=== PATIENT | female | born 1960 | race African-American/Black ===

== ENCOUNTER 2018-04-29 10:11 | Emergency (ER) | payer SELFPAY ==
[2018-04-29 10:53] LABS: #Basophils 0.1 thou/uL (0.0-0.2); #Eosinphils 0.1 thou/uL (0.0-0.7); #Lymphocytes 2.3 thou/uL (1.20-3.40); #Monocytes 0.3 thou/uL (0.11-0.59); #Neutrophils 2.4 thou/uL (1.40-6.50); %Basophils 2.1 % (0.0-1.0); %Eosinophils 2.7 % (0.0-10.0); %Lymphocytes 43.7 % (21.0-51.0); %Monocytes 6.2 % (0.0-10.0); %Neutrophils 45.3 % (42.0-75.0); Mean Corpuscular HGB CONC 32.4 g/dL (32.0-36.0); Mean Corpuscular Hemoglobin 29.2 pg (27.0-31.0); Mean Corpuscular Volume 90.2 fl (81.0-99.0); Mean Platelet Volume 7.4 fL (7.4-10.4); Platelet Count 276 thou/uL (130-400); RBC Distribution Width 12.7 % (11.5-14.5); Red Blood Cell (RBC) Count 4.43 mill/uL (4.20-5.40); White Blood Cell (WBC) Count 5.2 thou/uL (4.8-10.8)
[2018-04-29 11:09] LABS: ALT (SGPT) 139 U/L (8-55); AST (SGOT) 133 U/L (5-34); Albumin 3.7 g/dL (3.5-5.0); Alkaline Phosphatase 548 U/L (40-150); Anion Gap 12 mmol/L (10-20); BUN (Urea Nitrogen) 10 mg/dL (9.8-20.1); Bilirubin, Total 0.7 mg/dL (0.2-1.2); Calc. Creatinine Clearance 0 mL/min (70-130); Calcium 9.5 mg/dL (7.8-10.44); Carbon Dioxide 26 mmol/L (22-29); Chloride 102 mmol/L (98-107); Estimated GFR-MDRD Greater than 90; Globulin 4.8 g/dL (2.4-3.5); Glucose 101 mg/dL (70-105); Lipase 7 U/L (8-78); Protein, Total 8.5 g/dL (6.0-8.3); Sodium 136 mmol/L (136-145)
[2018-04-29 11:30] LABS: Bilirubin Negative (Negative); Blood, Urine Negative (Negative); Clarity CLEAR (Clear); Glucose, Urine (Dipstick) Negative (Negative); Leukocyte Small (Negative); Nitrite Negative (Negative); Protein, Urine (Dipstick) 30 mg/dL (Neg-Trace); Specific Gravity, Urine 1.023 (1.002-1.036)
[2018-04-29 11:33] LABS: Bacteria/HPF None Seen HPF (None Seen); Hyaline Casts/LPF 0-3 HYALINE CAST LPF (0-3 Hyaline); Pathc Cast-AUWi Flag 0.29 (0-2.49); Squamous Epithelial 0-3 HPF (0-3); WBC/HPF 0-3 HPF (0-3)
[2018-04-29] MEDS ORDERED: ISOVUE-370 76%-LOCM 1 ML ONE (13:41)
[2018-04-29] MEDS ORDERED: Iopamidol 370 76% 50 ML VIAL FS ONE (13:41)
--- NOTE | 2018-04-29 15:12 | CT ---
CT OF ABDOMEN AND PELVIS PERFORMED WITH IV CONTRAST ENHANCEMENT: Date: 04/29/18 HISTORY: right lower quadrant pain. FINDINGS: The lung bases are clear of infiltrates. There is a small hiatal hernia present. There is oral contra st within the distal esophagus. This could indicate reflux. Visualized liver parenchyma shows suggestion of fatty change. The liver measures 17.0 cm in length. T he spleen is within normal limits of size. Pancreas region is unremarkable. Gallbladder is slightly c ontracted. Right and left adrenal glands are normal in appearance. Right and left kidneys are normal in size and not obstructed. No renal calculi are demonstrated. No significant periaortic or mesenteric adenopath y. CT of pelvis was performed with contrast enhancement. Fat-containing periumbilical hernia is present. The appendix is normal in size and appearance. There is no evidence of adenopathy, mass, or free flu id. IMPRESSION: 1. Small hiatal hernia. 2. Suggestion of some fatty changes of the liver. 3. Normal appendix. 4. Fat-containing periumbilical hernia. POS: REFUGIO
== END 2018-04-29 15:16 | disposition home or self-care (01) ==
LOC: ERS 10:11
DX: R10.31 Right lower quadrant pain (principal); R94.5 Abnormal results of liver function studies; E11.9 Type 2 diabetes mellitus without complications; E78.5 Hyperlipidemia, unspecified; I10 Essential (primary) hypertension; J44.9 Chronic obstructive pulmonary disease, unspecified; Z87.891 Personal history of nicotine dependence; Z79.84 Long term (current) use of oral hypoglycemic drugs; Z79.899 Other long term (current) drug therapy
CPT/HCPCS: 36415; 74177; 80053; 81003; 81015; 83690; 85025

== ENCOUNTER 2022-11-06 07:46 | Emergency (ER) | payer SELFPAY ==
[2022-11-06 09:08] LABS: #Eosinphils 0.1 thou/uL (0.0-0.7); #Lymphocytes 1.4 thou/uL (1.20-3.40); #Monocytes 0.6 thou/uL (0.11-0.59); #Neutrophils 3.2 thou/uL (1.40-6.50); %Basophils 0.5 % (0.0-1.0); %Eosinophils 1.5 % (0.0-10.0); %Lymphocytes 25.8 % (21.0-51.0); %Monocytes 11.6 % (0.0-10.0); %Neutrophils 60.6 % (42.0-75.0); Hemoglobin 11.9 g/dL (12.0-16.0); Mean Corpuscular HGB CONC 32.7 g/dL (32.0-36.0); Mean Corpuscular Hemoglobin 33.7 pg (27.0-31.0); Mean Platelet Volume 7.9 fL (7.4-10.4); Platelet Count 181 10x3/uL (130-400); RBC Distribution Width 13.1 % (11.5-14.5); Red Blood Cell (RBC) Count 3.53 mill/uL (4.20-5.40); White Blood Cell (WBC) Count 5.2 10x3/uL (4.8-10.8)
[2022-11-06 09:27] LABS: ALT (SGPT) 90 U/L (8-55); AST (SGOT) 220 U/L (5-34); Albumin 2.6 g/dL (3.4-4.8); Alkaline Phosphatase 616 U/L (40-110); Anion Gap 13 mmol/L (10-20); BUN (Urea Nitrogen) 15 mg/dL (9.8-20.1); Bilirubin, Total 10.9 mg/dL (0.2-1.2); Calc. Creatinine Clearance 0 mL/min (70-130); Calcium 8.8 mg/dL (7.8-10.44); Carbon Dioxide 31 mmol/L (23-31); Chloride 97 mmol/L (98-107); Estimated GFR 81; Globulin 4.9 g/dL (2.4-3.5); Glucose 102 mg/dL (80-115); Potassium 3.2 mmol/L (3.5-5.1); Protein, Total 7.5 g/dL (5.8-8.1); Sodium 138 mmol/L (136-145)
[2022-11-06 09:35] LABS: Bilirubin 1+ (Negative); Blood, Urine Negative (Negative); Clarity Clear (Clear); Glucose, Urine (Dipstick) Normal (Negative); Ketone, Urine Negative (Negative); Leukocyte Negative Leu/uL (Negative); Nitrite Negative (Negative); Protein, Urine (Dipstick) Negative (Neg-Trace); Specific Gravity, Urine 1.014 (1.002-1.036); pH, Urine 5.5 (5.0-9.0)
[2022-11-06] MEDS ORDERED: Iopamidol-370 76% 500 ML 1 ML ONE (16:00)
== END 2022-11-06 14:44 | disposition home or self-care (01) ==
LOC: ERS 07:46
DX: K74.60 Unspecified cirrhosis of liver (principal); L29.9 Pruritus, unspecified; E11.9 Type 2 diabetes mellitus without complications; E78.00 Pure hypercholesterolemia, unspecified; J44.9 Chronic obstructive pulmonary disease, unspecified; Z87.891 Personal history of nicotine dependence
CPT/HCPCS: 36415; 74177; 80053; 80307; 81003; 82977; 83880; 84443; 85025; Q9967

== ENCOUNTER 2022-11-26 04:37 | Emergency (ER) | payer SELFPAY ==
[2022-11-26] MEDS ORDERED: Furosemide 40 MG/4 ML VIAL ONE (04:56)
[2022-11-26 05:13] LABS: #Eosinphils 0.1 thou/uL (0.0-0.7); #Lymphocytes 1.4 thou/uL (1.20-3.40); #Monocytes 0.5 thou/uL (0.11-0.59); #Neutrophils 3.7 thou/uL (1.40-6.50); %Basophils 0.5 % (0.0-1.0); %Eosinophils 1.8 % (0.0-10.0); %Lymphocytes 24.1 % (21.0-51.0); %Monocytes 8.2 % (0.0-10.0); %Neutrophils 65.4 % (42.0-75.0); Mean Corpuscular HGB CONC 33.5 g/dL (32.0-36.0); Mean Corpuscular Hemoglobin 34.3 pg (27.0-31.0); Mean Platelet Volume 8.5 fL (7.4-10.4); Platelet Count 168 10x3/uL (130-400); RBC Distribution Width 12.4 % (11.5-14.5); White Blood Cell (WBC) Count 5.6 10x3/uL (4.8-10.8)
[2022-11-26 05:24] LABS: ALT (SGPT) 66 U/L (8-55); AST (SGOT) 168 U/L (5-34); Albumin 2.6 g/dL (3.4-4.8); Alkaline Phosphatase 320 U/L (40-110); Anion Gap 12 mmol/L (10-20); BUN (Urea Nitrogen) 13 mg/dL (9.8-20.1); Bilirubin, Total 10.4 mg/dL (0.2-1.2); Calc. Creatinine Clearance 0 mL/min (70-130); Calcium 8.5 mg/dL (7.8-10.44); Carbon Dioxide 26 mmol/L (23-31); Chloride 101 mmol/L (98-107); Estimated GFR 87; Glucose 102 mg/dL (80-115); Protein, Total 7.6 g/dL (5.8-8.1); Sodium 135 mmol/L (136-145)
== END 2022-11-26 06:50 | disposition home or self-care (01) ==
LOC: ERS 04:37
DX: R60.9 Edema, unspecified (principal); K74.60 Unspecified cirrhosis of liver; E80.6 Other disorders of bilirubin metabolism; E88.09 Other disorders of plasma-protein metabolism, not elsewhere classified; E11.9 Type 2 diabetes mellitus without complications; E78.00 Pure hypercholesterolemia, unspecified; I10 Essential (primary) hypertension; Z87.891 Personal history of nicotine dependence
CPT/HCPCS: 80053; 83880; 84484; 85025; 93005; 96374; J1940

== ENCOUNTER 2022-12-10 04:09 | Emergency (ER) | payer SELFPAY | END 2022-12-10 05:49 | disposition home or self-care (01) | LOC: ERS 04:09 | DX: T16.1XXA Foreign body in right ear, initial encounter (principal); E11.9 Type 2 diabetes mellitus without complications; E78.00 Pure hypercholesterolemia, unspecified; I10 Essential (primary) hypertension; J44.9 Chronic obstructive pulmonary disease, unspecified; Z87.891 Personal history of nicotine dependence; Z79.899 Other long term (current) drug therapy | CPT/HCPCS: 69200; 99282 ==

== ENCOUNTER 2022-12-24 14:03 | Emergency (ER) | payer SELFPAY ==
[2022-12-24 15:44] LABS: #Eosinphils 0.1 thou/uL (0.0-0.7); #Monocytes 0.5 thou/uL (0.11-0.59); #Neutrophils 2.8 thou/uL (1.40-6.50); %Basophils 0.2 % (0.0-1.0); %Eosinophils 1.7 % (0.0-10.0); %Lymphocytes 22.7 % (21.0-51.0); %Monocytes 10.7 % (0.0-10.0); %Neutrophils 64.7 % (42.0-75.0); Mean Corpuscular HGB CONC 32.4 g/dL (32.0-36.0); Mean Corpuscular Hemoglobin 33.2 pg (27.0-31.0); Mean Platelet Volume 8.2 fL (7.4-10.4); Platelet Count 188 10x3/uL (130-400); RBC Distribution Width 14.3 % (11.5-14.5); Red Blood Cell (RBC) Count 3.62 mill/uL (4.20-5.40); White Blood Cell (WBC) Count 4.3 10x3/uL (4.8-10.8)
[2022-12-24 16:06] LABS: ALT (SGPT) 86 U/L (8-55); AST (SGOT) 178 U/L (5-34); Albumin 2.2 g/dL (3.4-4.8); Alkaline Phosphatase 317 U/L (40-110); Anion Gap 13 mmol/L (10-20); BUN (Urea Nitrogen) 11 mg/dL (9.8-20.1); Bilirubin, Total 11.1 mg/dL (0.2-1.2); Calc. Creatinine Clearance 0 mL/min (70-130); Calcium 8.4 mg/dL (7.8-10.44); Carbon Dioxide 28 mmol/L (23-31); Chloride 99 mmol/L (98-107); Estimated GFR 92; Globulin 4.6 g/dL (2.4-3.5); Glucose 99 mg/dL (80-115); Potassium 3.7 mmol/L (3.5-5.1); Protein, Total 6.8 g/dL (5.8-8.1); Sodium 136 mmol/L (136-145)
== END 2022-12-24 16:35 | disposition home or self-care (01) ==
LOC: ERS 14:03
DX: S81.832A Puncture wound without foreign body, left lower leg, initial encounter (principal); S81.831A Puncture wound without foreign body, right lower leg, initial encounter; K74.60 Unspecified cirrhosis of liver; D72.819 Decreased white blood cell count, unspecified; E11.9 Type 2 diabetes mellitus without complications; E78.5 Hyperlipidemia, unspecified; I10 Essential (primary) hypertension; J44.9 Chronic obstructive pulmonary disease, unspecified
CPT/HCPCS: 36415; 80053; 83880; 85025; 93005

== ENCOUNTER 2023-03-07 10:59 | Emergency (ER) | payer SELFPAY ==
[2023-03-07 12:27] LABS: #Eosinphils 0.1 thou/uL (0.0-0.7); #Lymphocytes 1.2 thou/uL (1.20-3.40); #Monocytes 0.7 thou/uL (0.11-0.59); %Basophils 0.3 % (0.0-1.0); %Eosinophils 1.2 % (0.0-10.0); %Lymphocytes 14.8 % (21.0-51.0); %Monocytes 8.5 % (0.0-10.0); %Neutrophils 75.2 % (42.0-75.0); Hemoglobin 10.9 g/dL (12.0-16.0); Mean Corpuscular HGB CONC 34.4 g/dL (32.0-36.0); Mean Corpuscular Hemoglobin 33.9 pg (27.0-31.0); Mean Corpuscular Volume 98.6 fl (78.0-98.0); Mean Platelet Volume 6.7 fL (7.4-10.4); Platelet Count 206 10x3/uL (130-400); RBC Distribution Width 13.3 % (11.5-14.5); Red Blood Cell (RBC) Count 3.21 mill/uL (4.20-5.40); White Blood Cell (WBC) Count 7.9 10x3/uL (4.8-10.8)
[2023-03-07 14:19] LABS: ALT (SGPT) 102 U/L (8-55); AST (SGOT) 275 U/L (5-34); Alkaline Phosphatase 484 U/L (40-110); Anion Gap 17 mmol/L (10-20); BUN (Urea Nitrogen) 13 mg/dL (9.8-20.1); Bilirubin, Total 14.4 mg/dL (0.2-1.2); Calc. Creatinine Clearance 0 mL/min (70-130); Calcium 8.1 mg/dL (7.8-10.44); Carbon Dioxide 24 mmol/L (23-31); Chloride 96 mmol/L (98-107); Estimated GFR 76; Globulin 4.5 g/dL (2.4-3.5); Glucose 92 mg/dL (80-115); Protein, Total 6.5 g/dL (5.8-8.1); Sodium 134 mmol/L (136-145)
[2023-03-07 14:23] LABS: Potassium 2.5 mmol/L (3.5-5.1)
[2023-03-07] MEDS ORDERED: Potassium Chloride 20 MEQ TAB ONE (15:03)
[2023-03-07 16:24] LABS: Potassium 2.6 mmol/L (3.5-5.1)
== END 2023-03-07 16:44 | disposition home or self-care (01) ==
LOC: ERS 10:59
DX: R60.0 Localized edema (principal); I11.0 Hypertensive heart disease with heart failure; I50.9 Heart failure, unspecified; E11.9 Type 2 diabetes mellitus without complications; E78.5 Hyperlipidemia, unspecified; E87.6 Hypokalemia; J44.9 Chronic obstructive pulmonary disease, unspecified; Z87.891 Personal history of nicotine dependence
CPT/HCPCS: 36415; 71045; 80053; 83880; 84484; 85025; 93005; 94760

== ENCOUNTER 2023-03-13 09:20 | Inpatient (IN) | payer MEDICAID, SELFPAY ==
[2023-03-13 10:35] LABS: #Basophils 0.1 thou/uL (0.0-0.2); #Eosinphils 0.1 thou/uL (0.0-0.7); #Lymphocytes 1.4 thou/uL (1.20-3.40); #Monocytes 0.9 thou/uL (0.11-0.59); #Neutrophils 6.7 thou/uL (1.40-6.50); %Basophils 0.6 % (0.0-1.0); %Eosinophils 0.7 % (0.0-10.0); %Lymphocytes 15.2 % (21.0-51.0); %Monocytes 10.3 % (0.0-10.0); %Neutrophils 73.2 % (42.0-75.0); Mean Corpuscular HGB CONC 31.1 g/dL (32.0-36.0); Mean Corpuscular Hemoglobin 30.7 pg (27.0-31.0); Mean Corpuscular Volume 98.8 fl (78.0-98.0); Mean Platelet Volume 6.3 fL (7.4-10.4); Platelet Count 233 10x3/uL (130-400); RBC Distribution Width 13.4 % (11.5-14.5); Red Blood Cell (RBC) Count 3.24 mill/uL (4.20-5.40); White Blood Cell (WBC) Count 9.2 10x3/uL (4.8-10.8)
[2023-03-13 10:54] LABS: ALT (SGPT) 117 U/L (8-55); AST (SGOT) 326 U/L (5-34); Albumin 1.9 g/dL (3.4-4.8); Alkaline Phosphatase 548 U/L (40-110); Anion Gap 12 mmol/L (10-20); BUN (Urea Nitrogen) 18 mg/dL (9.8-20.1); Bilirubin, Total 14.7 mg/dL (0.2-1.2); Calc. Creatinine Clearance 0 mL/min (70-130); Calcium 8.2 mg/dL (7.8-10.44); Carbon Dioxide 26 mmol/L (23-31); Chloride 97 mmol/L (98-107); Estimated GFR 63; Globulin 4.6 g/dL (2.4-3.5); Glucose 110 mg/dL (80-115); Lipase 37 U/L (8-78); Magnesium 1.9 mg/dL (1.6-2.6); Protein, Total 6.5 g/dL (5.8-8.1); Sodium 133 mmol/L (136-145)
[2023-03-13 11:00] LABS: Potassium 2.4 mmol/L (3.5-5.1)
[2023-03-13] MEDS ORDERED: Potassium Chloride 20 MEQ/100 ML PREMIX BAG ONE (13:19)
[2023-03-13] MEDS ORDERED: Ondansetron PF 4 MG/2 ML Vial IVP PRN (13:28)
[2023-03-13] MEDS ORDERED: Magnesium 2 GM/50 ML(in water) 2 GM in Premix Bag 1 BAG IVPB SCH (13:30)
[2023-03-13] MEDS ORDERED: Dextrose 5% in Water 1,000 ML IV PRN (13:32)
[2023-03-13] MEDS ORDERED: Dextrose 50% Abboject 50 ML SYRINGE SLOW IVP PRN (13:32)
[2023-03-13] MEDS ORDERED: Lactulose 10 GM/15 ML Oral Solution PR SCH (13:45)
[2023-03-13 14:26] LABS: INR-International Normal Ratio 1.5; PTT 41.7 sec (22.9-36.1); Prothrombin Time 18.9 sec (12.0-14.7)
[2023-03-13] MEDS: Potassium Chloride 10 MEQ in Premix Bag 1 BAG IVPB SCH ×2 (14:27→14:28)
[2023-03-13] MEDS ORDERED: Magnesium 2 GM/50 ML BAG (IN WATER) ONE (14:50)
[2023-03-13] MEDS ORDERED: POTASSIUM CHLORIDE IVPB SCH (16:30)
[2023-03-13] MEDS: Potassium Chloride 20 MEQ in Premix Bag 1 BAG IVPB SCH ×4 (17:18→18:41)
[2023-03-13 17:48] LABS: Anion Gap 17 mmol/L (10-20); BUN (Urea Nitrogen) 18 mg/dL (9.8-20.1); Calc. Creatinine Clearance 0 mL/min (70-130); Calcium 8.2 mg/dL (7.8-10.44); Carbon Dioxide 23 mmol/L (23-31); Chloride 97 mmol/L (98-107); Estimated GFR 63; Glucose 105 mg/dL (80-115); Potassium 2.8 mmol/L (3.5-5.1); Sodium 134 mmol/L (136-145)
[2023-03-13] MEDS: Lactulose 10 GM/15 ML Oral Solution PR SCH (18:20)
[2023-03-14] MEDS: Potassium Chloride 20 MEQ in Premix Bag 1 BAG IVPB SCH (00:34)
[2023-03-14] MEDS: Lactulose 10 GM/15 ML Oral Solution PR SCH ×3 (00:35→11:55)
[2023-03-14 00:44] LABS: Anion Gap 12 mmol/L (10-20); BUN (Urea Nitrogen) 19 mg/dL (9.8-20.1); Calc. Creatinine Clearance 96 mL/min (70-130); Calcium 7.8 mg/dL (7.8-10.44); Carbon Dioxide 23 mmol/L (23-31); Chloride 98 mmol/L (98-107); Estimated GFR 53; Glucose 107 mg/dL (80-115); Potassium 3.7 mmol/L (3.5-5.1); Sodium 129 mmol/L (136-145)
[2023-03-14 04:45] LABS: Mean Corpuscular HGB CONC 34.1 g/dL (32.0-36.0); Mean Corpuscular Volume 99.5 fl (78.0-98.0); Mean Platelet Volume 6.9 fL (7.4-10.4); Platelet Count 245 10x3/uL (130-400); RBC Distribution Width 13.7 % (11.5-14.5); Red Blood Cell (RBC) Count 2.95 mill/uL (4.20-5.40)
[2023-03-14 05:03] LABS: ALT (SGPT) 106 U/L (8-55); AST (SGOT) 296 U/L (5-34); Albumin 1.9 g/dL (3.4-4.8); Alkaline Phosphatase 518 U/L (40-110); Anion Gap 15 mmol/L (10-20); BUN (Urea Nitrogen) 20 mg/dL (9.8-20.1); Bilirubin, Total 14.9 mg/dL (0.2-1.2); Calc. Creatinine Clearance 103 mL/min (70-130); Calcium 8.2 mg/dL (7.8-10.44); Carbon Dioxide 24 mmol/L (23-31); Chloride 99 mmol/L (98-107); Estimated GFR 57; Globulin 4.5 g/dL (2.4-3.5); Glucose 108 mg/dL (80-115); Magnesium 2.1 mg/dL (1.6-2.6); Potassium 2.7 mmol/L (3.5-5.1); Protein, Total 6.4 g/dL (5.8-8.1); Sodium 135 mmol/L (136-145)
[2023-03-14 05:29] LABS: Band 8 % (5-11); Lymphocytes 10 % (21-51); MDiff Complete? YES; Monocytes 8 % (0-10); Neutrophil 73 % (42-75); White Blood Cell (WBC) Count 12.5 10x3/uL (4.8-10.8)
[2023-03-14] MEDS ORDERED: Lidocaine 1% PF 5 ML VIAL ONE (08:38)
[2023-03-14] MEDS ORDERED: Sodium Bicarbonate 2.5 MEQ/5 ML VIAL ONE (08:38)
[2023-03-14 09:56] VITALS: BP 165/48
[2023-03-14 10:17] LABS: RBC Count-Automated (BF) 179 /cu.mm; WBC/Nucleated-Auto (BF) 167 /cu.mm
[2023-03-14 10:31] LABS: BF Color Yellow; Body Fluid Source Ascites Body Fluid; Clarity Clear (Clear); Tube # EDTA
[2023-03-14 10:32] LABS: BF Segmented Neutrophils 33 %; Cell Count Non Hematic 40 %; Lymphocytes 27 %
[2023-03-14] MEDS: cefTRIAXone\\ROCEPHIN 2 GM in Sodium Chloride 0.9% 100 ML IVPB SCH (10:57)
[2023-03-14] MEDS ORDERED: Pantoprazole 40 MG VIAL IVP SCH (15:15)
[2023-03-14 15:22] LABS: Amphetamine Not Detected (NotDetected); Barbiturates Screen Not Detected (NotDetected); Benzodiazepine Screen Not Detected (NotDetected); Cocaine Metabolite Screen Not Detected (NotDetected); Methadone Not Detected (NotDetected); Methamphetamine Not Detected (NotDetected); Opiate Screen Not Detected (NotDetected); Oxycodone Screen Not Detected (NotDetected); Phencyclidine (PCP) Not Detected (NotDetected); THC/Cannabinoid Screen Not Detected (NotDetected); Tricyclic Screen Not Detected (NotDetected)
[2023-03-14] MEDS: Folic Acid 1 MG, Thiamine HCl 100 MG in Dextrose 5 %-0.45 % NaCl 1,000 ML IV SCH (15:55)
[2023-03-14] MEDS: Sodium Chloride 0.45% 1,000 ML IV SCH (15:56)
[2023-03-14 17:03] LABS: Acetaminophen Less than 10.0 mcg/mL (10.0-30.0)
[2023-03-14] MEDS ORDERED: Thiamine HCl 200 MG/2 ML VIAL SLOW IVP SCH (20:00)
[2023-03-14] MEDS: Rifaximin 550 MG TAB PO SCH (21:17)
[2023-03-14 23:56] LABS: Bacteria/HPF None Seen HPF (None Seen); CAUTI Indications for Culture Acute Hematuria; Clarity Extra Turbid (Clear); Squamous Epithelial None Seen HPF (0-3)
[2023-03-15 00:23] LABS: pH, Urine 6.3 (5.0-9.0)
[2023-03-15 00:24] LABS: Leukocyte Unable to Interpret Leu/uL (Negative); Nitrite Unable to Interpret (Negative); Specific Gravity, Urine 1.029 (1.002-1.036)
[2023-03-15 00:25] LABS: Glucose, Urine (Dipstick) Unable to Interpret mg/dL (Negative); Ketone, Urine Unable to Interpret mg/dL (Negative); Protein, Urine (Dipstick) Unable to Interpret mg/dL (Neg-Trace)
[2023-03-15 00:26] LABS: Bilirubin Unable to Interpret (Negative); Blood, Urine Unable to Interpret (Negative); RBC/HPF Greater than 50 HPF (0-3); Urobilinogen UNABLE TO INTERPRET mg/dL (Less than 2); WBC/HPF Greater Than 50 HPF (0-3)
[2023-03-15 00:27] LABS: Urine Culture Reflex Yes Yes
[2023-03-15] MEDS ORDERED: Furosemide 40 MG/4 ML VIAL SLOW IVP SCH (02:30)
[2023-03-15 03:54] LABS: #Lymphocytes 1.9 thou/uL (1.20-3.40); %Eosinophils 0.2 % (0.0-10.0); %Lymphocytes 10.8 % (21.0-51.0); %Monocytes 5.7 % (0.0-10.0); %Neutrophils 83.3 % (42.0-75.0); Hemoglobin 9.6 g/dL (12.0-16.0); Mean Corpuscular HGB CONC 35.9 g/dL (32.0-36.0); Mean Corpuscular Hemoglobin 35.4 pg (27.0-31.0); Mean Corpuscular Volume 98.8 fl (78.0-98.0); Mean Platelet Volume 6.2 fL (7.4-10.4); Platelet Count 208 10x3/uL (130-400); RBC Distribution Width 13.9 % (11.5-14.5); Red Blood Cell (RBC) Count 2.71 mill/uL (4.20-5.40)
[2023-03-15 04:14] LABS: Phosphorus 3.8 mg/dL (2.3-4.7)
[2023-03-15 04:17] LABS: ALT (SGPT) 120 U/L (8-55); AST (SGOT) 293 U/L (5-34); Albumin 1.8 g/dL (3.4-4.8); Alkaline Phosphatase 482 U/L (40-110); Anion Gap 18 mmol/L (10-20); BUN (Urea Nitrogen) 24 mg/dL (9.8-20.1); Calc. Creatinine Clearance 74 mL/min (70-130); Calcium 8.1 mg/dL (7.8-10.44); Carbon Dioxide 20 mmol/L (23-31); Chloride 99 mmol/L (98-107); Estimated GFR 39; Globulin 4.5 g/dL (2.4-3.5); Glucose 133 mg/dL (80-115); Iron 35 ug/dL (50-170); Iron Binding Capacity, Total 205 mcg/dL (265-497); Magnesium 2.2 mg/dL (1.6-2.6); Potassium 2.6 mmol/L (3.5-5.1); Protein, Total 6.3 g/dL (5.8-8.1); Sodium 134 mmol/L (136-145)
[2023-03-15 04:48] LABS: HBSAg Index 0.32 S/CO (0-0.99); Hep A IgM AB Non-Reactive S/CO (NonReactive); Hep A IgM S/CO 0.27 S/CO (0-0.79); Hep B Surf Ag Non-Reactive S/CO (NonReactive); Hep C IgG Ab Non-Reactive S/CO (NonReactive); Hepatitis B Core IgM Abs Non-Reactive S/CO (NonReactive)
[2023-03-15 04:51] LABS: Vitamin B12 Greater than 2000 pg/mL (211-911)
[2023-03-15] MEDS: Sodium Chloride 0.45% 1,000 ML IV SCH (05:47)
[2023-03-15] MEDS: Albumin 25% 25 GM/100 ML BOT IVPB SCH ×3 (05:47→18:04)
[2023-03-15] MEDS: Potassium Chloride 20 MEQ in Premix Bag 1 BAG IVPB SCH ×2 (06:06→09:02)
[2023-03-15] MEDS ORDERED: Electrolyte Replacement Protocol 1 EACH FS SCH (08:45)
[2023-03-15] MEDS: cefTRIAXone\\ROCEPHIN 2 GM in Sodium Chloride 0.9% 100 ML IVPB SCH (09:03)
[2023-03-15] MEDS: Rifaximin 550 MG TAB PO SCH ×2 (09:03→20:56)
[2023-03-15] MEDS: Pantoprazole 40 MG VIAL IVP SCH (09:04)
[2023-03-15] MEDS: D5 0.9% NS w/ 20 mEq KCl 1,000 ML IV SCH (10:01)
[2023-03-15 12:48] LABS: INR-International Normal Ratio 2.5; Prothrombin Time 28.3 sec (12.0-14.7)
[2023-03-15] MEDS ORDERED: Furosemide 100 MG/10 ML VIAL SLOW IVP SCH (15:45)
[2023-03-15 16:06] VITALS: BMI 44.9
[2023-03-15] MEDS: Folic Acid 1 MG, Thiamine HCl 100 MG in Dextrose 5 %-0.45 % NaCl 1,000 ML IV SCH (16:44)
[2023-03-15] MEDS ORDERED: Potassium Chloride 30 MEQ in Premix Bag 1 BAG IVPB SCH (16:45)
[2023-03-15] MEDS ORDERED: Potassium Chloride 20 MEQ in Premix Bag 1 BAG IVPB SCH ×2 (17:00→22:00)
[2023-03-16] MEDS ORDERED: Adenosine 6 MG/2 ML VIAL ONE (00:32)
[2023-03-16] MEDS: Albumin 25% 25 GM/100 ML BOT IVPB SCH ×3 (00:42→21:23)
[2023-03-16] MEDS: D5 0.9% NS w/ 20 mEq KCl 1,000 ML IV SCH ×2 (01:02→19:46)
[2023-03-16 06:41] LABS: #Basophils 0.1 thou/uL (0.0-0.2); #Lymphocytes 1.3 thou/uL (1.20-3.40); #Neutrophils 11.9 thou/uL (1.40-6.50); %Basophils 0.5 % (0.0-1.0); %Eosinophils 0.2 % (0.0-10.0); %Lymphocytes 8.7 % (21.0-51.0); %Monocytes 7.2 % (0.0-10.0); %Neutrophils 83.4 % (42.0-75.0); Hemoglobin 7.7 g/dL (12.0-16.0); Mean Corpuscular Hemoglobin 32.3 pg (27.0-31.0); Mean Corpuscular Volume 97.8 fl (78.0-98.0); Mean Platelet Volume 6.4 fL (7.4-10.4); Platelet Count 150 10x3/uL (130-400); RBC Distribution Width 13.9 % (11.5-14.5); Red Blood Cell (RBC) Count 2.37 mill/uL (4.20-5.40); White Blood Cell (WBC) Count 14.3 10x3/uL (4.8-10.8)
[2023-03-16 07:04] LABS: ALT (SGPT) 101 U/L (8-55); AST (SGOT) 242 U/L (5-34); Albumin 2.8 g/dL (3.4-4.8); Alkaline Phosphatase 381 U/L (40-110); Anion Gap 14 mmol/L (10-20); BUN (Urea Nitrogen) 27 mg/dL (9.8-20.1); Bilirubin, Total 14.4 mg/dL (0.2-1.2); Calc. Creatinine Clearance 47 mL/min (70-130); Calcium 8.6 mg/dL (7.8-10.44); Carbon Dioxide 24 mmol/L (23-31); Chloride 108 mmol/L (98-107); Estimated GFR 23; Globulin 3.5 g/dL (2.4-3.5); Glucose 130 mg/dL (80-115); Magnesium 2.6 mg/dL (1.6-2.6); Potassium 2.8 mmol/L (3.5-5.1); Protein, Total 6.3 g/dL (5.8-8.1); Sodium 143 mmol/L (136-145)
[2023-03-16] MEDS: Folic Acid 1 MG TAB PER TUBE SCH (08:20)
[2023-03-16] MEDS: Rifaximin 550 MG TAB PO SCH ×2 (08:20→21:23)
[2023-03-16] MEDS: Thiamine 100 MG TAB PER TUBE SCH (08:20)
[2023-03-16] MEDS: Potassium Bicarbonate/Cit Ac 20 MEQ TAB PER TUBE SCH ×2 (08:20→19:35)
[2023-03-16] MEDS: Pantoprazole 40 MG VIAL IVP SCH (08:21)
[2023-03-16] MEDS: cefTRIAXone\\ROCEPHIN 2 GM in Sodium Chloride 0.9% 100 ML IVPB SCH (08:21)
[2023-03-16] MEDS ORDERED: Lorazepam 2 MG/ML VIAL SLOW IVP PRN (11:00)
[2023-03-16] MEDS ORDERED: Phytonadione 10 MG in Sodium Chloride 0.9% 50 ML IVPB SCH (14:15)
[2023-03-16] MEDS: Midodrine HCl 5 MG TAB PO SCH ×2 (16:00→21:23)
[2023-03-16 18:48] LABS: EliA Vaculitis New Method **** NEW METHOD ****
[2023-03-16] MEDS: Octreotide Acetate 1,250 MCG in Sodium Chloride 0.9% 250 ML 250 ML IVPB SCH (19:46)
[2023-03-17] MEDS ORDERED: Ipratropium/Albuterol 3 ML NEB NEB PRN (02:19)
[2023-03-17 03:19] LABS: Actual Bicarbonate (HCO3a) 24.7 mEq/L (22-28); Base Excess (BEa) -0.4 mEq/L (-2.0 to +3.0); Calcium, Ionized (arterial) 1.13 mmol/L (1.12-1.30); Carboxyhemoglobin (COHb) 1.1 gm% (0.0-3.0); Hematocrit-ABG 31 % (36.0-47.0); Hemoglobin (Hb) 10.6 g/dL (12.0-16.0); O2 Tension (PaO2), arterial 67.1 mmHg (> 80.0); Potassium - ABG Lab 3.04 mmol/L (3.70-5.30); pH, Arterial 7.387 (7.35-7.45)
[2023-03-17 03:21] LABS: Puncture Site RRA
[2023-03-17 04:37] LABS: Hemoglobin 8.1 g/dL (12.0-16.0); Mean Corpuscular Hemoglobin 32.5 pg (27.0-31.0); Mean Corpuscular Volume 98.7 fl (78.0-98.0); Mean Platelet Volume 6.7 fL (7.4-10.4); Platelet Count 142 10x3/uL (130-400); RBC Distribution Width 13.9 % (11.5-14.5); Red Blood Cell (RBC) Count 2.47 mill/uL (4.20-5.40)
[2023-03-17 04:42] LABS: ALT (SGPT) 98 U/L (8-55); AST (SGOT) 228 U/L (5-34); Albumin 3.1 g/dL (3.4-4.8); Alkaline Phosphatase 370 U/L (40-110); Anion Gap 16 mmol/L (10-20); BUN (Urea Nitrogen) 29 mg/dL (9.8-20.1); Bilirubin, Total 14.8 mg/dL (0.2-1.2); Calc. Creatinine Clearance 44 mL/min (70-130); Calcium 8.9 mg/dL (7.8-10.44); Carbon Dioxide 23 mmol/L (23-31); Chloride 111 mmol/L (98-107); Estimated GFR 21; Globulin 3.5 g/dL (2.4-3.5); Glucose 116 mg/dL (80-115); Magnesium 2.6 mg/dL (1.6-2.6); Potassium 3.1 mmol/L (3.5-5.1); Protein, Total 6.6 g/dL (5.8-8.1); Sodium 147 mmol/L (136-145)
[2023-03-17 05:13] LABS: Prothrombin Time 32.6 sec (12.0-14.7)
[2023-03-17 05:22] LABS: Band 6 % (5-11); Lymphocytes 6 % (21-51); MDiff Complete? YES; Monocytes 2 % (0-10); Neutrophil 86 % (42-75); Platelet Morphology Comment Appears Adequate; Polychromasia SLIGHT = 2-3 cells (100X) (0-2/hpf); Tear Drops SLIGHT = 2-5 cells (100X) (0-1/hpf)
[2023-03-17] MEDS: D5 0.9% NS w/ 20 mEq KCl 1,000 ML IV SCH ×2 (06:38→09:20)
[2023-03-17] MEDS ORDERED: Potassium Bicarbonate/Cit Ac 20 MEQ TAB PER TUBE SCH (08:00)
[2023-03-17] MEDS: Albumin 25% 25 GM/100 ML BOT IVPB SCH ×3 (08:09→22:36)
[2023-03-17] MEDS: Pantoprazole 40 MG VIAL IVP SCH (08:10)
[2023-03-17] MEDS: Rifaximin 550 MG TAB PO SCH ×2 (08:10→21:29)
[2023-03-17] MEDS: Folic Acid 1 MG TAB PER TUBE SCH (08:10)
[2023-03-17] MEDS: Thiamine 100 MG TAB PER TUBE SCH (08:10)
[2023-03-17] MEDS: Midodrine HCl 5 MG TAB PO SCH ×3 (08:10→21:29)
[2023-03-17] MEDS: cefTRIAXone\\ROCEPHIN 2 GM in Sodium Chloride 0.9% 100 ML IVPB SCH (08:10)
[2023-03-17 08:25] LABS: Bilirubin 2+ (Negative); Blood, Urine 3+ (Negative); Clarity Turbid (Clear); Glucose, Urine (Dipstick) Normal (Negative); Ketone, Urine Trace mg/dL (Negative); Leukocyte 75 Leu/uL (Negative); Nitrite Negative (Negative); Protein, Urine (Dipstick) 50 mg/dL (Neg-Trace); RBC/HPF Greater than 50 HPF (0-3); Specific Gravity, Urine 1.034 (1.002-1.036); Squamous Epithelial 0-3 HPF (0-3); Urobilinogen Normal mg/dL (Less than 2); pH, Urine 5.5 (5.0-9.0)
[2023-03-17 08:26] LABS: Bacteria/HPF 1+ HPF (None Seen)
[2023-03-17] MEDS: D5 1/2 NS w/20 mEq KCL 1,000 ML IV SCH (12:05)
[2023-03-17] MEDS: Octreotide Acetate 1,250 MCG in Sodium Chloride 0.9% 250 ML 250 ML IVPB SCH (14:56)
[2023-03-17] MEDS: Phytonadione 10 MG in Sodium Chloride 0.9% 50 ML IVPB SCH (17:06)
[2023-03-17 23:22] LABS: Actual Bicarbonate (HCO3a) 23.4 mEq/L (22-28); Base Excess (BEa) -1.8 mEq/L (-2.0 to +3.0); Calcium, Ionized (arterial) 1.14 mmol/L (1.12-1.30); Carboxyhemoglobin (COHb) 2.2 gm% (0.0-3.0); Hematocrit-ABG 24 % (36.0-47.0); O2 Tension (PaO2), arterial 63.1 mmHg (> 80.0); Potassium - ABG Lab 3.15 mmol/L (3.70-5.30); pH, Arterial 7.364 (7.35-7.45)
[2023-03-17 23:23] LABS: Puncture Site RBA
[2023-03-17] MEDS ORDERED: Scopolamine 1.5 mg/72 hour Patch TD SCH (23:59)
[2023-03-18] MEDS: D5 1/2 NS w/20 mEq KCL 1,000 ML IV SCH (00:54)
[2023-03-18] MEDS: Albumin 25% 25 GM/100 ML BOT IVPB SCH ×3 (04:48→16:13)
[2023-03-18 05:24] LABS: Hemoglobin 7.7 g/dL (12.0-16.0); Mean Corpuscular HGB CONC 31.9 g/dL (32.0-36.0); Mean Corpuscular Hemoglobin 32.7 pg (27.0-31.0); RBC Distribution Width 14.3 % (11.5-14.5); Red Blood Cell (RBC) Count 2.34 mill/uL (4.20-5.40); White Blood Cell (WBC) Count 11.7 10x3/uL (4.8-10.8)
[2023-03-18 05:29] LABS: Phosphorus 3.9 mg/dL (2.3-4.7)
[2023-03-18 05:30] LABS: Anion Gap 17 mmol/L (10-20); BUN (Urea Nitrogen) 31 mg/dL (9.8-20.1); Calc. Creatinine Clearance 42 mL/min (70-130); Carbon Dioxide 23 mmol/L (23-31); Chloride 112 mmol/L (98-107); INR-International Normal Ratio 2.8; Potassium 3.2 mmol/L (3.5-5.1); Prothrombin Time 31.1 sec (12.0-14.7); Sodium 149 mmol/L (136-145)
[2023-03-18 05:31] LABS: ALT (SGPT) 86 U/L (8-55); AST (SGOT) 184 U/L (5-34); Albumin 3.4 g/dL (3.4-4.8); Alkaline Phosphatase 321 U/L (40-110); Bilirubin, Total 16.5 mg/dL (0.2-1.2); Estimated GFR 20; Globulin 3.2 g/dL (2.4-3.5); Glucose 120 mg/dL (80-115); Magnesium 2.6 mg/dL (1.6-2.6); Protein, Total 6.6 g/dL (5.8-8.1)
[2023-03-18 05:56] LABS: Band 20 % (5-11); Lymphocytes 14 % (21-51); MDiff Complete? YES; Mean Platelet Volume 7.6 fL (7.4-10.4); Monocytes 4 % (0-10); Neutrophil 62 % (42-75); Nucleated RBC 1 % (0); Platelet Count 117 10x3/uL (130-400); Platelet Morphology Comment Appears Decreased
[2023-03-18] MEDS ORDERED: Potassium Bicarbonate/Cit Ac 20 MEQ TAB PER TUBE SCH (08:00)
[2023-03-18 08:42] LABS: Base Excess (BEa) -3.1 mEq/L (-2.0 to +3.0); CO2 Tension 46.7 mmHg (35.0-45.0); Calcium, Ionized (arterial) 1.15 mmol/L (1.12-1.30); Carboxyhemoglobin (COHb) 1.9 gm% (0.0-3.0); Hematocrit-ABG 23 % (36.0-47.0); Hemoglobin (Hb) 7.9 g/dL (12.0-16.0); O2 Tension (PaO2), arterial 154.3 mmHg (> 80.0); Potassium - ABG Lab 3.12 mmol/L (3.70-5.30)
[2023-03-18 08:44] LABS: ALV-art Gradient 500.325 mmHg (0-20); Puncture Site Right Radial
[2023-03-18] MEDS: cefTRIAXone\\ROCEPHIN 2 GM in Sodium Chloride 0.9% 100 ML IVPB SCH (09:05)
[2023-03-18] MEDS: Midodrine HCl 5 MG TAB PO SCH ×2 (11:37→15:33)
[2023-03-18] MEDS: Pantoprazole 40 MG VIAL IVP SCH (11:37)
[2023-03-18] MEDS: Rifaximin 550 MG TAB PO SCH (11:38)
[2023-03-18] MEDS: Folic Acid 1 MG TAB PER TUBE SCH (11:38)
[2023-03-18] MEDS: Thiamine 100 MG TAB PER TUBE SCH (11:38)
[2023-03-18 12:43] VITALS: TEMP 96.2
[2023-03-18] MEDS ORDERED: GLYCOPYRROLATE/PF 0.2 MG/ML VIAL SLOW IVP SCH (14:15)
[2023-03-18] MEDS ORDERED: Glycopyrrolate 0.4 MG/ 2 ML VIAL SLOW IVP SCH (14:15)
[2023-03-18] MEDS ORDERED: Morphine 2 MG/ML VIAL SLOW IVP PRN (15:15)
[2023-03-18] MEDS ORDERED: Lorazepam 2 MG/ML VIAL SLOW IVP PRN (15:15)
[2023-03-18] MEDS ORDERED: Morphine 4 MG/ML VIAL SLOW IVP SCH (15:30)
[2023-03-18] MEDS: Octreotide Acetate 1,250 MCG in Sodium Chloride 0.9% 250 ML 250 ML IVPB SCH (16:13)
[2023-03-18] MEDS: Phytonadione 10 MG in Sodium Chloride 0.9% 50 ML IVPB SCH (17:10)
[2023-03-19 13:49] LABS: ANA Symphony (Qualitative) Equivocal: See Note (Negative); ANA Symphony (Quantitative) 0.7 Ratio (< 0.7 Negative); dsDNA IgG Antibody 1.8 IU/mL (<10 Negative)
== END 2023-03-18 19:05 | disposition expired | DRG 441 ==
LOC: SUATTDRO 09:20 → ERS 09:20 → ERHOLD 13:33 → IMCU/EMU 15:01
PROVIDERS: ADMIT Family Medicine; ATTEND Family Medicine
PROC: 0W9G3ZZ Drainage of Peritoneal Cavity, Percutaneous Approach (ICD-10-PCS; principal; 2023-03-14)
DX: K76.82 Hepatic encephalopathy (principal); G92.8 Other toxic encephalopathy; K76.7 Hepatorenal syndrome; J96.01 Acute respiratory failure with hypoxia; N17.9 Acute kidney failure, unspecified; D62 Acute posthemorrhagic anemia; E87.0 Hyperosmolality and hypernatremia; Z66 Do not resuscitate; E11.9 Type 2 diabetes mellitus without complications; E78.5 Hyperlipidemia, unspecified; I10 Essential (primary) hypertension; J44.9 Chronic obstructive pulmonary disease, unspecified; E87.6 Hypokalemia; K70.31 Alcoholic cirrhosis of liver with ascites; D53.9 Nutritional anemia, unspecified; R31.9 Hematuria, unspecified; K70.11 Alcoholic hepatitis with ascites; E88.09 Other disorders of plasma-protein metabolism, not elsewhere classified; F10.20 Alcohol dependence, uncomplicated; E87.8 Other disorders of electrolyte and fluid balance, not elsewhere classified; Z87.891 Personal history of nicotine dependence; Z79.899 Other long term (current) drug therapy; Z90.710 Acquired absence of both cervix and uterus
CPT/HCPCS: 36415; 36416; 36600; 49083; 70450; 70486; 71045; 72125; 74018; 74176; 74177; 76770; 80053; 80074; 80143; 80306; 81001; 82042; 82105; 82140; 82390; 82550; 82607; 82805; 83516; 83540; 83550; 83615; 83690; 83735; 83880; 84100; 84443; 84484; 85025; 85060; 85610; 85652; 85730; 86015; 86038; 86225; 86850; 86900; 86901; 87070; 87086; 87205; 89051; 93005; 93306; 93970; 94760; 96365; 96366; 80307; C9113; J0696; J1940; J2060; J2354; J2405; J3411; J3430; J3475; J3480; J3490; J7042; J7050; P9047